=== PATIENT | male | born 1950 | race Caucasian/White ===

== ENCOUNTER 2019-11-17 09:08 | Outpatient (CLI) | payer MEDICARE, MEDICAID ==
[2019-11-17] MEDS ORDERED: IOVERSOL 320 50 ML VIAL ONE (09:27)
[2019-11-17] MEDS ORDERED: IOVERSOL 320 100 ML VIAL IVP ONE ×2 (09:28→13:00)
[2019-11-17 10:01] LABS: CREATININE 0.8 mg/dL (0.6-1.2)
[2019-11-17] MEDS ORDERED: IOVERSOL 320 50 ML VIAL PO ONE (13:00)
--- NOTE | 2019-11-18 04:11 | XRAY Report ---
Reason: Osteomyelitis right humerus Procedure Date: 11/17/2019 Accession Number: [id number] / [id number] Procedure: XR - Humerus RT CPT Code: Final Report FULL RESULT: EXAM: RIGHT HUMERUS RADIOGRAPHY EXAM DATE: 11/17/2019 01:56 PM. CLINICAL HISTORY: Osteomyelitis right humerus. COMPARISON: BONE SCAN 11/17/2019 11:58 AM. TECHNIQUE: 2 views. FINDINGS: There is a soft tissue defect with soft tissue gas along the distal aspect of the upper arm. No fracture or dislocation is seen. There is no evidence of cortical destruction. IMPRESSION: No radiographic evidence of osteomyelitis. Soft tissue defect and soft tissue gas. [facility]
--- NOTE | 2019-11-18 09:08 | Nuclear Medicine Report ---
Reason: SQUAMOUS CELL CA Procedure Date: 11/17/2019 Accession Number: [id number] / [id number] Procedure: NM - Bone Whole Body CPT Code: Final Report FULL RESULT: EXAM: BONE SCAN EXAM DATE: 11/17/2019 02:09 PM. CLINICAL HISTORY: SQUAMOUS CELL CA. COMPARISON: ABDOMEN/PELVIS W11/17/2019 10:39 AM CHEST W11/17/2019 10:39 AM. TECHNIQUE: Following the intravenous administration of 32.3 mCi of technetium 99m MDP and an appropriate delay, a whole-body scan was performed in anterior and posterior projections. Site-specific spot views of the region of interest were obtained in various projections. FINDINGS: Normal renal radiotracer uptake and bladder activity. Normal soft tissue activity. Overall normal osseous uptake. Fairly intense focal uptake right mandible and lesser uptake on the left probably dental disease. Mild thoracolumbar scoliosis. Probable degenerative uptake at the left base of, shoulders, sternoclavicular joints, right midfoot, right elbow. No suspicious focal uptake. IMPRESSION: 1. No convincing scintigraphic evidence of osseous metastasis. [facility]
--- NOTE | 2019-11-21 12:51 | CT Report ---
Reason: SQUAMOUS CA Procedure Date: 11/17/2019 Accession Number: [id number] / [id number] Procedure: CT - CHEST W CPT Code: Final Report FULL RESULT: EXAM: CT CHEST EXAM DATE: 11/17/2019 10:46 AM. CLINICAL HISTORY: Squamous CA, removed from right arm. COMPARISONS: None. TECHNIQUE: Routine helical CT imaging was performed through the chest. IV contrast: 100 cc Optiray 320. Reconstructions: Coronal and sagittal. In accordance with CT protocol optimization, one or more of the following dose reduction techniques were utilized for this exam: automated exposure control, adjustment of mA and/or KV based on patient size, or use of iterative reconstructive technique. FINDINGS: Lungs/Pleura: No nodules, bronchial thickening, consolidation, or edema. Pulmonary vasculature is normal. No pericardial or pleural effusion. No pneumothorax. Mild linear posterior left lower lobe scarring and/or atelectasis. Mediastinum: Tiny foci of air within contrast bolus. No central pulmonary emboli. No adenopathy or masses. The heart and great vessels are normal. Bones: Unremarkable. Visualized Abdomen: Multiple dependent gallstones. Scattered liver cysts. Other: None. IMPRESSION: 1. No evidence for thoracic metastatic disease. 2. Cholelithiasis. [facility]
--- NOTE | 2019-11-21 13:31 | CT Report ---
Reason: SQUAMOUS CA Procedure Date: 11/17/2019 Accession Number: [id number] / [id number] Procedure: CT - Abdomen/Pelvis W CPT Code: Final Report FULL RESULT: EXAM: CT ABDOMEN AND PELVIS EXAM DATE: 11/17/2019 10:46 AM. CLINICAL HISTORY: Squamous CA, right arm. COMPARISONS: None. TECHNIQUE: Routine helical CT imaging was performed through the abdomen and pelvis. IV contrast: 100 mL Optiray 320. Enteric contrast: Yes. Reconstructions: Coronal and sagittal. In accordance with CT protocol optimization, one or more of the following dose reduction techniques were utilized for this exam: automated exposure control, adjustment of mA and/or KV based on patient size, or use of iterative reconstructive technique. FINDINGS: Lung Bases: Unremarkable. Liver: Scattered liver cysts. No suspicious mass. Patent portal vein. Gallbladder/Bile Ducts: Small dependent gallstones. No gallbladder wall thickening or biliary ductal dilatation. Spleen: Normal. Pancreas: Normal. Adrenal Glands: Normal. Kidneys: Normal. No masses or hydronephrosis. Peritoneal Cavity/Bowel: Colonic diverticulosis. No focal inflammation. No dilated bowel. Fat-containing umbilical hernia. A short segment left upper quadrant jejunal intussusception, probable incidental finding. No CT evidence for mass. Prominent bilateral inguinal canal fat. Pelvic Organs: Normal. The bladder and visualized pelvic organs are within normal limits. Vasculature: No aneurysms or other significant abnormality. Bones: Old compression fractures at L2, L3 and L5 levels. Other: None. IMPRESSION: 1. No evidence for metastatic disease within the abdomen or pelvis. 2. Cholelithiasis. 3. Diverticulosis. 4. Fat-containing umbilical hernia. 5. Several old lumbar spine compression fractures. Consider DEXA exam if clinically warranted. [facility]
== END 2019-11-17 09:09 | disposition home or self-care (01) ==
LOC: DI 09:08
PROVIDERS: ATTEND Surgery
DX: M86.9 Osteomyelitis, unspecified (principal); C44.621 Squamous cell carcinoma of skin of unspecified upper limb, including shoulder; K80.20 Calculus of gallbladder without cholecystitis without obstruction; K57.30 Diverticulosis of large intestine without perforation or abscess without bleeding; K42.9 Umbilical hernia without obstruction or gangrene
CPT/HCPCS: 36415; 71260; 73060; 74177; 78306; 82565; Q9967

== ENCOUNTER 2019-11-24 08:41 | Outpatient (CLI) | payer MEDICARE, MEDICAID ==
[2019-11-24 09:28] LABS: BASOPHILS # (AUTO) 0.1 10^3/uL (0.0-0.1); BASOPHILS % (AUTO) 0.7 %; EOSINOPHILS # (AUTO) 0.2 10^3/uL (0.0-0.7); EOSINOPHILS % (AUTO) 3.4 %; LYMPHOCYTES # (AUTO) 1.8 10^3/uL (1.5-3.5); MEAN CORPUSCULAR HEMOGLOBIN 17.2 pg (27.0-31.0); MEAN CORPUSCULAR HGB CONC 27.4 g/dL (32.0-36.0); MEAN CORPUSCULAR VOLUME 62.9 fL (80.0-94.0); MEAN PLATELET VOLUME 9.7 fL (7.4-11.4); MONOCYTES # (AUTO) 0.6 10^3/uL (0.0-1.0); MONOCYTES % (AUTO) 8.1 %; NEUTROPHILS # (AUTO) 4.4 10^3/uL (1.5-6.6); NEUTROPHILS % (AUTO) 61.5 %; PLT - PLATELET COUNT 515 10^3/uL (130-450); RED BLOOD COUNT 3.83 10^6/uL (4.70-6.10); RED CELL DISTRIBUTION WIDTH 18.7 % (12.0-15.0); WHITE BLOOD COUNT 7.1 x10^3/uL (4.8-10.8)
[2019-11-24 09:40] LABS: ALBUMIN 3.6 g/dL (3.2-5.5); ALKALINE PHOSPHATASE 65 IU/L (42-121); ALT ALANINE AMINOTRANSFERASE < 10 IU/L (10-60); AST ASPARTATE AMINOTRANSFERASE 14 IU/L (10-42); BILIRUBIN,TOTAL 0.6 mg/dL (0.2-1.0); BUN - BLOOD UREA NITROGEN 13 mg/dL (6-20); CARBON DIOXIDE - CO2 24 mmol/L (21-32); CHLORIDE 102 mmol/L (101-111); CREATININE 0.8 mg/dL (0.6-1.2); GFR - MDRD 96 (>89); GLUCOSE 92 mg/dL (70-100); SODIUM 136 mmol/L (135-145); TOTAL PROTEIN 7.1 g/dL (6.7-8.2)
[2019-11-24 09:53] LABS: HGB - HEMOGLOBIN 6.6 g/dL (14.0-18.0)
[2019-11-24 10:47] LABS: % IRON SATURATION 2 % (20-50); IRON 9 ug/dL (45-182); TOTAL IRON BINDING CAPACITY 521 ug/dL (250-450); TRANSFERRIN 372 mg/dL (180-329)
[2019-11-24 11:01] LABS: FERRITIN 3.3 ng/mL (23.9-336.2)
[2019-11-24 11:04] LABS: FOLATE 3.4 ng/mL (5.90 - >24.8)
== END 2019-11-24 08:42 | disposition home or self-care (01) ==
LOC: LAB 08:41
PROVIDERS: ATTEND Family Medicine
DX: C44.621 Squamous cell carcinoma of skin of unspecified upper limb, including shoulder (principal); D64.9 Anemia, unspecified
CPT/HCPCS: 36415; 80053; 82607; 82728; 82746; 83540; 84443; 84466; 85025

== ENCOUNTER 2019-12-08 12:02 | Outpatient (CLI) | payer MEDICARE, MEDICAID ==
[2019-12-08] MEDS ORDERED: IOVERSOL 320 100 ML VIAL IVP ONE (12:25)
--- NOTE | 2019-12-08 16:37 | CT Report ---
Reason: SQUAMOUS CELL CA OF RT ARM Procedure Date: 12/08/2019 Accession Number: [id number] / [id number] Procedure: CT - ANGIO UPPER EXT W/WO - RT CPT Code: Final Report FULL RESULT: EXAM: RIGHT UPPER EXTREMITY CT ANGIOGRAM WITH CONTRAST EXAM DATE: 12/08/2019 12:55 PM. 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 COMPARISON: 11/17/2019 radiograph, bone scan 11/17/2019. CT abdomen pelvis from 11/17/2019. TECHNIQUE: Thin-section axial images were acquired of the upper extremity from the shoulder to the elbow in arterial phase after administration of intravenous contrast. IV contrast: 100 mL Optiray 320. Post-processing: Multiplanar MPR and 3D MIP reformats. Other: None. In accordance with CT protocol optimization, one or more of the following dose reduction techniques were utilized for this exam: automated exposure control, adjustment of mA and/or KV based on patient size, or use of iterative reconstructive technique. FINDINGS: Bones: No fracture or bone lesion. Joints: The visualized joint spaces are normal. Vascular Structures: The brachial artery is patent without evidence of stenosis or occlusion. The radial ulnar arteries are patent in the visualized forearm. The deep brachial artery does appear to be near the open wound and terminates near the distal humerus. Roughly the distal fourth is absent with no visible retrograde flow at the elbow. There is no contrast extravasation into the open wound. Other: 1.7 cm hypodensity in the liver is better visualized as a simple cyst on the CT abdomen and pelvis previously performed. The patient has a large soft tissue defect on the radial side of the mid humerus extending to muscle, particularly the triceps and the brachialis. The defect measures 7.9 x 13.0 cm. There is no obvious drainable fluid on this examination performed in arterial phase. IMPRESSION: Large open wound on the radial side of the distal upper arm that extends to multiple muscles. The deep brachial artery terminates in the region of the wound but there is no contrast extravasation. [facility]
== END 2019-12-08 12:03 | disposition home or self-care (01) ==
LOC: DI 12:02
PROVIDERS: ATTEND Surgery Plastic and Reconstructive Surgery
DX: C44.622 Squamous cell carcinoma of skin of right upper limb, including shoulder (principal); S41.101A Unspecified open wound of right upper arm, initial encounter
CPT/HCPCS: 73206; Q9967

== ENCOUNTER 2021-08-05 07:39 | Outpatient (CLI) | payer MEDICARE, MEDICAID ==
[2021-08-05 07:59] LABS: ABSOLUTE RETICS # AUTO 0.053 10^6/uL (0.020-0.110); BASOPHILS # (AUTO) 0.1 10^3/uL (0.0-0.1); EOSINOPHILS # (AUTO) 0.2 10^3/uL (0.0-0.7); EOSINOPHILS % (AUTO) 3.1 %; HGB - HEMOGLOBIN 15.2 g/dL (14.0-18.0); LYMPHOCYTES % (AUTO) 39.3 %; MEAN CORPUSCULAR HEMOGLOBIN 30.3 pg (27.0-31.0); MEAN CORPUSCULAR VOLUME 91.8 fL (80.0-94.0); MEAN PLATELET VOLUME 9.8 fL (7.4-11.4); MONOCYTES # (AUTO) 0.4 10^3/uL (0.0-1.0); MONOCYTES % (AUTO) 8.3 %; NEUTROPHILS # (AUTO) 2.5 10^3/uL (1.5-6.6); NEUTROPHILS % (AUTO) 48.1 %; PLT - PLATELET COUNT 236 10^3/uL (130-450); RED BLOOD COUNT 5.01 10^6/uL (4.70-6.10); RED CELL DISTRIBUTION WIDTH 12.8 % (12.0-15.0); RETICULOCYTE COUNT % (AUTO) 1.05 % (0.5-2.3); WHITE BLOOD COUNT 5.1 x10^3/uL (4.8-10.8)
[2021-08-05 08:18] LABS: % IRON SATURATION 28 % (20-50); ALBUMIN 4.3 g/dL (3.2-5.5); ALBUMIN/GLOBULIN RATIO 1.6 (1.0-2.2); ALKALINE PHOSPHATASE 64 IU/L (42-121); ALT ALANINE AMINOTRANSFERASE 19 IU/L (10-60); AST ASPARTATE AMINOTRANSFERASE 22 IU/L (10-42); BILIRUBIN,TOTAL 0.7 mg/dL (0.2-1.0); BUN - BLOOD UREA NITROGEN 12 mg/dL (6-20); CALCIUM 9.5 mg/dL (8.5-10.3); CARBON DIOXIDE - CO2 26 mmol/L (21-32); CHLORIDE 100 mmol/L (101-111); CHOL/HDL RATIO 4.7 (<5.0); CHOLESTEROL 217 mg/dL; CREATININE 0.9 mg/dL (0.6-1.2); GFR - MDRD 83 (>89); GLUCOSE 102 mg/dL (70-100); HDL CHOLESTEROL 46 mg/dL; IRON 97 ug/dL (45-182); LDL CHOLESTEROL,CALCULATED 147 mg/dL; LDL/HDL RATIO 3.2 (<3.6); POTASSIUM 4.2 mmol/L (3.5-5.0); SODIUM 136 mmol/L (135-145); TOTAL IRON BINDING CAPACITY 347 ug/dL (250-450); TRANSFERRIN 248 mg/dL (180-329); TRIGLYCERIDES 121 mg/dL; VLDL CHOLESTEROL 24 mg/dL
[2021-08-05 08:29] LABS: THYROID STIMULATING HORMONE 1.48 uIU/mL (0.34-5.60)
[2021-08-05 08:36] LABS: FERRITIN 94.2 ng/mL (23.9-336.2)
[2021-08-05 08:40] LABS: FOLATE 24.47 ng/mL (5.90 - >24.8)
[2021-08-05 11:18] LABS: ESTIMATED AVERAGE GLUCOSE 108 mg/dL (70-100); HEMOGLOBIN A1c% 5.4 % (4.27-6.07)
== END 2021-08-05 07:40 | disposition home or self-care (01) ==
LOC: LAB 07:39
PROVIDERS: ATTEND Family Medicine
DX: D50.9 Iron deficiency anemia, unspecified (principal); D64.9 Anemia, unspecified
CPT/HCPCS: 36415; 80053; 80061; 82607; 82728; 82746; 83036; 83540; 83721; 84443; 84466; 85025; 85045